=== PATIENT | male | born 1955 | race American Indian/Alaskan Native ===

== ENCOUNTER 2016-10-12 09:44 | Day surgery (SDC) | payer OTHER ==
[~2016-10-12 09:44] MED LIST: ANCEF/STERILE WATER 2 GM/20 ML IV NR
[2016-10-12] MEDS ORDERED: DILAUDID IV PRN (10:02)
--- NOTE | 2016-10-12 10:03 | Anesthesia Day of Surgery ---
Anesthesia Day of Surgery - Day of Surgery Patient Examined: Yes Patient H&P Reviewed: Yes Patient is NPO: Yes
[2016-10-12] MEDS ORDERED: PEPCID PO NR (11:00)
[2016-10-12] MEDS ORDERED: ZOFRAN IV PRN (11:00)
[2016-10-12] MEDS ORDERED: NACL 0.9% 1000 ML 1,000 ML IV SCH (11:00)
[2016-10-12] MEDS ORDERED: VERSED IV NR (11:00)
--- NOTE | 2016-10-12 11:24 | Anesthesia Consultation ---
Anesthesia Consult and Med Hx Date of service: 10/12/16 - Airway Anesthetic Teeth Evaluation: Good ROM Head & Neck: Adequate Mental/Hyoid Distance: Adequate Mallampati Class: Class II Intubation Access Assessment: Probably Good - Pulmonary Exam CTA: Yes - Cardiac Exam Cardiac Exam: RRR - Pre-Operative Health Status ASA Pre-Surgery Classification: ASA2 Proposed Anesthetic Plan: General - Pulmonary Hx Smoking: Yes (cigar occassionally) Hx Sleep Apnea: No (HIGH RISK) - Cardiovascular System Hx Hypertension: Yes - Central Nervous System Hx Seizures: No CVA: No - Endocrine Hx Renal Disease: No Hx Cirrhosis: No Hx Hypothyroidism: No - Other Systems Hx Alcohol Use: Yes (OCCASIONALLY) Hx Substance Use: No Hx Cancer: No Hx Obesity: Yes - Additional Comments Anesthesia Medical History Comments: PONV
[2016-10-12] MEDS ORDERED: REGLAN PO NR (12:00)
[2016-10-12] MEDS ORDERED: NEOSPORIN GU IR ONE (14:08)
[2016-10-12] MEDS ORDERED: DILAUDID ONE (14:15)
[2016-10-12] MEDS ORDERED: DIPRIVAN 10 MG/ML IV ONE (14:15)
[2016-10-12] MEDS ORDERED: XYLOCAINE MPF 2% ONE (14:15)
[2016-10-12] MEDS ORDERED: DECADRON ONE (14:21)
[2016-10-12] MEDS ORDERED: MARCAINE 0.25% INFILTRATI ONE ×2 (14:24→14:31)
[2016-10-12] MEDS ORDERED: NACL 0.9% IR ONE (14:31)
[2016-10-12] MEDS ORDERED: ZOFRAN ONE (14:50)
--- NOTE | 2016-10-12 15:01 | Short Stay Summary ---
Short Stay Documentation - Allergies and Medications Current Medications: Allergies POWDER IN GLOVES Adverse Reaction (Uncoded 10/12/16 12:13) Itching Home Medications Medication Instructions Recorded Confirmed Last Taken Type AtorvaSTATin [Lipitor] 20 mg PO DAILY 09/18/16 10/12/16 10/11/16 History Celecoxib [celeBREX] 200 mg PO BID PRN 09/18/16 09/18/16 Unknown History Colchicine [Colcrys] 0.6 mg PO DAILY 09/18/16 10/12/16 10/11/16 History Gabapentin [Neurontin] 300 mg PO Q8HR PRN 09/18/16 09/18/16 Unknown History Montelukast [Singulair] 10 mg PO QAM 09/18/16 10/12/16 10/11/16 History Omeprazole 40 mg PO DAILY 09/18/16 10/12/16 10/11/16 History Saxagliptin HCl/Metformin HCl 1 each PO DAILY 09/18/16 10/12/16 10/11/16 History [Kombiglyze Xr 5-1,000 mg Tab] Sertraline [Zoloft] 100 mg PO QDAY 09/18/16 10/12/16 10/11/16 History Fluticasone [Flonase] 2 spray NS PRN PRN 10/05/16 10/05/16 Unknown History Lisinopril [Zestril] 20 mg PO QDAY 10/05/16 10/12/16 10/11/16 History Testosterone Cypionate (Nf) 200 mg IM Q4W 10/05/16 10/05/16 Unknown History [Depo-Testosterone (Nf)] Zolpidem [Ambien] 10 mg PO PRN PRN 10/05/16 10/12/16 09/28/16 History Active Medications Cefazolin Sodium (Ancef/Sterile Water 2 Gm/20 Ml) 2 gm IV PREOP NR Stop: 10/12/16 23:59 Famotidine (Pepcid) 20 mg PO PREOP NR Stop: 10/12/16 15:00 Last Admin: 10/12/16 11:51 Dose: 20 mg Hydromorphone HCl (Dilaudid) 0.5 mg IV Q10MIN PRN PRN Reason: Pain , Severe (7-10) Stop: 10/12/16 15:00 Sodium Chloride (Nacl 0.9% 1000 Ml) 1,000 mls @ 75 mls/hr IV DIRECT LEANNA Last Admin: 10/12/16 11:51 Dose: 75 mls/hr Metoclopramide HCl (Reglan) 10 mg PO PREOP NR Stop: 10/12/16 17:00 Last Admin: 10/12/16 12:09 Dose: 10 mg Midazolam HCl (Versed) 2 mg IV PREOP NR Stop: 10/12/16 23:59 Last Admin: 10/12/16 12:15 Dose: 2 mg Short Stay Discharge Plan Activity: no restrictions, advance as tolerated Weight Bearing Status: Full Weight Bearing Diet: regular Wound: keep clean and dry, per your surgeon's advice, other (keep it covered . change dressing after 48 -72 hours and clean with alcohol wipes and apply clean dressing. put brace back on) Special Instructions: other (keep it covered . change dressing after 48 -72 hours and clean with alcohol wipes and apply clean dressing. put brace back on. brace untill seen. watch for swelling and color changes of finger. inform if redbess or drainage of wound or if severe pain. ) Follow up with: [facility] [Other] - 7 Days MARVIN MOSES MD [Staff Physician] - 7 Days
[2016-10-12 16:48] VITALS: BP 138/87
--- NOTE | 2016-10-12 17:35 | Operative Report ---
PREOPERATIVE DIAGNOSIS: Trigger finger, right third digit. POSTOPERATIVE DIAGNOSES: Trigger finger, right third digit with significant thickness A1 meghna. PROCEDURES PERFORMED: Right mini-open trigger finger release. COMPLICATIONS: None. BLOOD LOSS: Minimal. SURGEON: Bairon Lewis M.D. SCANNING COORDINATOR: Yvonne Wade. ANESTHESIA: General anesthesia. COMPLICATIONS: None. 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 DETAILS OF OPERATIVE REPORT: The patient was taken to the operating room. After smooth general endotracheal anesthesia, all bony prominences carefully padded, placed supine on the operating table. Right arm, right upper extremity placed underside arm board and all the bony prominences were carefully padded. High-arm tourniquet was placed. Right hand and right upper extremity prepped and draped in sterile fashion. Esmarch used and tourniquet inflated to 250 mmHg. The oblique incision in line with the distal palmar crease, incision was carried down to the subcutaneous dermis and subcutaneous tissue and dissection was performed bluntly in line with the flexor tendon muscles and the flexor tendons were identified. The A1 meghna was identified and incised the significant thickness of it was present. The triggering was typical before the A1 meghna was incised. The A1 meghna was incised and it was released in complete fashion from proximal to distal extent and the FDS and FDP was delivered out without any triggering. We were able to move the fingers without any triggering. Significant improvement tourniquet released. No active bleeder as such and the wound was washed with normal saline and closed with 3-0 nylon interrupted sutures in a horizontal mattress fashion and infiltrated with 3 mL of 0.25% Marcaine plain into the wound area. Wound was cleaned and dressed. Dressing was done with Xeroform, 4 x 4s, Kerlix and an Elias wrap and brace was applied. JOB# [id number] SK/NTS
== END 2016-10-12 17:01 | disposition home or self-care (01) ==
LOC: OR 09:44
PROVIDERS: ATTEND Orthopaedic Surgery
DX: M65.331 Trigger finger, right middle finger (principal); M19.041 Primary osteoarthritis, right hand; I10 Essential (primary) hypertension; F17.290 Nicotine dependence, other tobacco product, uncomplicated; E66.9 Obesity, unspecified; Z68.31 Body mass index [BMI] 31.0-31.9, adult; Z72.89 Other problems related to lifestyle; Z91.09 Other allergy status, other than to drugs and biological substances; Z79.899 Other long term (current) drug therapy
CPT/HCPCS: 26055; 82962; J0690; J1100; J1170; J2250; J2405; J2704; J7030